=== PATIENT | female | born 1965 | race African-American/Black ===

== ENCOUNTER 2016-08-06 07:41 | Emergency (ER) | payer OTHER, MEDICARE ==
[~2016-08-06] VITALS: Ht 177.8 cm; Wt 91.6 kg
[2016-08-06 07:48] VITALS: BP 120/74
--- NOTE | 2016-08-06 08:24 | ED SYNCOPE COMPLAINT ---
History of Present Illness General Chief Complaint: Syncope and Near-Syncope Stated Complaint: BIBA SYNCOPE Source: patient, EMS Exam Limitations: no limitations Vital Signs & Intake/Output Vital Signs & Intake/Output Vital Signs Date Time Temp Pulse Resp B/P Pulse O2 O2 Flow FiO2 Ox Delivery Rate 08/06 0748 96.7 79 20 120/74 97 Room Air Allergies Coded Allergies: NO KNOWN ALLERGIES (04/06/14) Reconcile Medications No Known Home Medications Triage Note: BIBA FROM HOME PER PT AND EMS "PT WOKE UP ON THE FLOOR, I THINK I JUST GOT DIZZY AND PASSED OUT". ACCUCHECK ENROUTE: 112, PT IS AWAKE, ALERT, ORIENTED UPON ARRIVAL, STATES "I JUST FEEL WEAK". DENIES ILLNESS, NO N/V/D, OR URINARY PROBLEMS, HAS HX OF ASTHMA, FEELS "SLIGHTLY SHORT OF BREATH", BP 120/74, HEART RATE 77, O2 SATS 99% ON ROOM AIR UPON ARRIVAL. Triage Nurses Notes Reviewed? yes HPI: Patient presents for evaluation of dizziness and syncope. Patient states that she began feeling dizzy at about 11:00 last night while at home. Patient states that she was simply lying in bed at onset of symptoms. She also felt a little short of breath. She also describes panting respirations with fatigue, disorientation but no associated chest pain or palpitations. Patient continues to feel disoriented this morning and awoke on the floor. Some of her symptoms have been fact present for "a long time". Patient currently has no primary care physician. Past History Travel History Traveled to [place] past 21 day No Medical History Any Pertinent Medical History? see below for history Neurological: NONE EENT: NONE Cardiovascular: NONE Respiratory: asthma Gastrointestinal: NONE Hepatic: NONE Renal: NONE Musculoskeletal: NONE Psychiatric: depression Endocrine: NONE Blood Disorders: NONE Cancer(s): NONE [employer]ACH/Reproductive: NONE Surgical History Surgical History: hysterectomy Psychosocial History What is your primary language Malay Tobacco Use: Current Daily Use Daily Tobacco Use Amount/Type: =< 4 Cigarettes daily ETOH Use: occasional use Illicit Drug Use: denies illicit drug use Family History Hx Contributory? No Review of Systems Review of Systems Constitutional: Reports: malaise. EENTM: Reports: no symptoms. Respiratory: Reports: see HPI. Cardiovascular: Reports: no symptoms. GI: Reports: no symptoms. Genitourinary: Reports: no symptoms. Musculoskeletal: Reports: no symptoms. Skin: Reports: no symptoms. Neurological/Psychological: Reports: no symptoms. All Other Systems: Reviewed and Negative Physical Exam Physical Exam Cranial Nerves: see below Comments: Gen.: Well-nourished, well-developed, no acute respiratory distress. Head: Normocephalic, atraumatic. Eyes: Normal inspection bilaterally Ears: Normal inspection bilaterally Nose: Normal inspection Throat/mouth : Moist mucosa Neck: Supple, full range of motion, no goiter Heart: Regular rate and rhythm, no murmurs rubs or gallops Lungs: Clear to auscultation bilaterally with normal air entry Chest: Nontender Back: Normal range of motion Abdomen: Soft, nontender, nondistended, normal bowel sounds Extremities: Normal range of motion grossly, equal radial pulses, no cyanosis clubbing or edema Neurologic: Cranial nerves 2 through 12 intact, speech is clear Skin: warm and dry Psychiatric: Calm, cooperative, no apparent delusions or hallucinations Core Measures ACS in differential dx? No CVA/TIA Diagnosis: No Severe Sepsis Present: No Septic Shock Present: No Progress Differential Diagnosis: orthostatic syncope, sick sinus syndrome, TIA/CVA, vasodepressor syncope, ventricular tach/fib Plan of Care: Orders Procedure Date/time Status Telemetry/Swaging Machine Adjuster 08/06 1008 Active MISTAKE 08/06 0830 Active TSH REFLEX 08/06 0830 Complete TROPONIN LEVEL 08/06 0830 Complete COMPREHENSIVE METABOLIC PANEL 08/06 0830 Complete CBC WITHOUT DIFFERENTIAL 08/06 0830 Complete EKG 08/06 0756 Active Laboratory Tests 08/06/16 0850: Anion Gap 5, Estimated GFR > 60, BUN/Creatinine Ratio 21.4, Glucose 89, Calcium 9.5, Total Bilirubin 1.0, AST 23, ALT 35, Alkaline Phosphatase 93, Troponin I < 0.01, Total Protein 7.3, Albumin 4.1, Globulin 3.2, Albumin/Globulin Ratio 1.3, TSH &T3 &Free T4 Intrp 0.831, CBC w Diff NO MAN DIFF REQ, RBC 4.46, MCV 89.8, MCH 30.6, RDW 13.3, MPV 7.9, Gran % 71.0, Lymphocytes % 20.9, Monocytes % 5.9, Eosinophils % 1.8, Basophils % 0.4, Absolute Granulocytes 4.9, Absolute Lymphocytes 1.4, Absolute Monocytes 0.4, Absolute Eosinophils 0.1, Absolute Basophils 0, PUBS MCHC 34.1 Diagnostic Imaging: Discussed w/RAD: Radiology Read. CXR Impression: PATIENT: PETTY RAYO PRESENT AGE: 50 PATIENT ACCOUNT NO: [id number] : 63 LOCATION: [facility] ORDERING PHYSICIAN: ZBIGNIEW REED MD SERVICE DATE: 08/06/16 EXAM TYPE: RAD - XRY-CHEST XRAY, PA AND LATERAL EXAMINATION: XR CHEST CLINICAL INFORMATION: Fatigue. Possible syncope. COMPARISON: None TECHNIQUE: 2 views of the chest were obtained. FINDINGS: Lungs are well expanded and clear. Trachea is midline in position. No pulmonary edema, focal consolidation or pleural effusion. Cardiac silhouette is normal in size. Mediastinal and hilar contours are normal. Bones are unremarkable. IMPRESSION: No acute cardiopulmonary abnormality. DICTATED BY: MERY SYED MD DATE/TIME DICTATED:08/06/16952 SOLAR SALES ADVISOR:RACHEL DATE/TIME TRANSCRIBED:08/06/16952 CONFIDENTIAL, DO NOT COPY WITHOUT APPROPRIATE AUTHORIZATION. <Electronically signed in Other Vendor System> SIGNED BY: MERY SYED MD 08/06/1658 Initial ED EKG: NSR, rate (79) Comments: During my care of this patient I considered the following differential diagnoses : Cardiac syncope/dysrhythmia but the EKG and telemetry showed no dysrhythmia, there were no significant electrolyte abnormalities, and the patient denied heart palpitations. Obstructive hypertrophic cardiomyopathy but there was no history of syncope with exercise, dyspnea or chest pain on exertion, palpitations or history of cardiac disease Aortic stenosis but the patient is no history of syncope/valve disease after exercise and had no crescendo decrescendo systolic murmur or precordial thrill. Subclavian steal syndrome but the patient denied arm pain or paresthesias and physical examination showed no pulse deficit. Carotid sinus hypersensitivity but physical examination reveals no goiter or other neck mass. Orthostatic syncope but patient's blood pressure was stable during orthostatic testing. Vasovagal syncope but the patient denied known triggering event Departure Departure Disposition: HOME OR SELF CARE Condition: Stable Clinical Impression Primary Impression: Dizziness Referrals: PATIENT HAS NO PRIMARY CARE DR (PCP/Family) Additional Instructions: Follow-up with the [facility] as soon as possible for further evaluation of your symptoms. Since he underlying cause of your symptoms is unclear at this point please return immediately if any concerns or sudden worsening. Please note that there might be incidental findings in your evaluation that are unrelated to the current emergency department visit. Please notify your primary care doctor about this emergency department visit in order to obtain and review all of the testing performed so that these incidental findings can be monitored as needed. If you had an x-ray performed, please understand that some fractures may not be seen on the initial set of x-rays. If your symptoms persist you might need a repeat set of x-rays to check for such a fracture. If you had a laceration evaluated, please understand that foreign bodies such as glass or wood may not be visible to the naked eye or on plain x-rays. If the wound becomes red, swollen, increasingly more painful or if there is any drainage from the wound, please have it reevaluated by a physician for the possibility of a retained foreign body. Thank you for choosing the [facility] Emergency Department for your care. It was a pleasure to serve you today. Zbigniew Rede M.D. [facility] Departure Forms: Customer Survey General Discharge Information Prescriptions: Current Visit Scripts No Known Home Medications
[2016-08-06 09:00] LABS: ABSOLUTE BASOPHIL COUNT 0 /CUMM (0.0-0.2); ABSOLUTE EOSINOPHIL COUNT 0.1 /CUMM (0.0-0.7); ABSOLUTE GRANULOCYTE CT 4.9 /CUMM (1.4-6.5); ABSOLUTE LYMPH COUNT 1.4 /CUMM (1.2-3.4); ABSOLUTE MONOCYTE COUNT 0.4 /CUMM (0.10-0.60); BASOPHIL % 0.4 % (0.0-2.0); EOSINOPHIL % 1.8 % (0-5); HEMATOCRIT 40.1 % (37-47); MEAN CORPUSCULAR HGB 30.6 PG (27.0-31.0); MEAN CORPUSCULAR HGB CONC 34.1 G/DL (33.0-37.0); MEAN CORPUSCULAR VOLUME 89.8 FL (81.0-99.0); MEAN PLATELET VOLUME 7.9 FL (7.4-10.4); PLATELET COUNT 232 /CUMM (130-400); RBC DISTRIBUTION WIDTH 13.3 % (11.5-14.5); RED BLOOD CELL CT 4.46 /CUMM (4.20-5.40); WHITE BLOOD CELL COUNT 6.9 /CUMM (4.8-10.8)
--- NOTE | 2016-08-06 09:58 | RADIOLOGY REPORT ---
EXAMINATION: XR CHEST CLINICAL INFORMATION: Fatigue. Possible syncope. COMPARISON: None TECHNIQUE: 2 views of the chest were obtained. FINDINGS: Lungs are well expanded and clear. Trachea is midline in position. No pulmonary edema, focal consolidation or pleural effusion. Cardiac silhouette is normal in size. Mediastinal and hilar contours are normal. Bones are unremarkable. IMPRESSION: No acute cardiopulmonary abnormality.
== END 2016-08-06 10:39 ==
LOC: ERH 07:41
PROVIDERS: Emergency Medicine
DX: R42 Dizziness and giddiness (principal); R06.02 Shortness of breath; J45.909 Unspecified asthma, uncomplicated; Z72.0 Tobacco use; R53.81 Other malaise
CPT/HCPCS: 93005; 93010

== ENCOUNTER 2016-11-13 05:33 | Emergency (ER) | payer OTHER, MEDICARE ==
[2016-11-13 05:39] VITALS: BP 153/83
--- NOTE | 2016-11-13 05:46 | ED UPPER/LOWER EXTREMITY COMPL ---
History of Present Illness General Chief Complaint: Lower Extremity Problems Stated Complaint: "BIBA KNEE PAIN" Source: patient, old records, EMS Exam Limitations: no limitations Vital Signs & Intake/Output Vital Signs & Intake/Output Vital Signs Date Time Temp Pulse Resp B/P B/P Pulse O2 O2 Flow FiO2 Mean Ox Delivery Rate 11/13 0539 85 22 153/83 97 Allergies Coded Allergies: NO KNOWN ALLERGIES (04/06/14) Reconcile Medications No Known Home Medications Triage Note: PER PT CO RT KNEE PAIN UNKNOWN INJURY, UNKNOWN LENGTH OF TIME, PT ARRIVES VIA EMS PT ABLE TO GET OFF EMS STRETCHER AND AMBULATE TO ROOM STRETCHER. PT VAGUE CO DIFFICULT TO ELICIT INFORMATION FROM Triage Nurses Notes Reviewed? yes HPI: Patient presents to the emergency room by ambulance with complaints of left knee pain which she has had for the past one month or more. Patient is unsure exactly how long that is pending but remembers it being there for at least a month. Patient states the pain is constant but sometimes gets worse when she walks around and she sometimes hears a click in her knee. The pain is throbbing in nature. The pain is moderate on the scale. Patient is ambulatory in the emergency department. There is no radiation of the pain. When asked what brought her into the emergency department this morning the patient states that she keeps missing appointments and she is nervous that there cannot discharge her. When asked what appointment she is missing the patient states she cannot remember. Patient is alert and oriented 3. Past History Travel History Traveled to [place] past 21 day No Medical History Any Pertinent Medical History? see below for history Neurological: NONE EENT: NONE Cardiovascular: NONE Respiratory: asthma Gastrointestinal: NONE Hepatic: NONE Renal: NONE Musculoskeletal: NONE Psychiatric: bipolar disease, depression Endocrine: NONE Blood Disorders: NONE Cancer(s): NONE SUPERVISOR DUMPING/Reproductive: NONE Surgical History Surgical History: hysterectomy Psychosocial History What is your primary language Romanian Tobacco Use: Quit >30 days ago ETOH Use: occasional use Illicit Drug Use: denies illicit drug use Family History Hx Contributory? No Review of Systems Review of Systems Constitutional: Reports: no symptoms. Respiratory: Reports: no symptoms. Cardiovascular: Reports: no symptoms. Musculoskeletal: Reports: see HPI, joint pain. Neurological/Psychological: Reports: no symptoms. Immunological: Reports: no symptoms. Physical Exam Physical Exam General Appearance: well developed/nourished, alert, awake, mild distress Head: atraumatic, normal appearance Eyes: Bilateral: PERRL, EOMI. Neck: normal inspection, supple, full range of motion Cardiovascular/Respiratory: normal breath sounds, normal peripheral pulses, regular rate/rhythm, no respiratory distress Knee Left: normal range of motion, normal inspection Knee Ligaments Left: STABLE Neurologic/Tendon: normal sensation, normal motor functions, normal tendon functions Skin: intact, normal color, warm/dry Lymphatic: no anterior cervical meera Progress Differential Diagnosis: compartment syndrome, contusion, fracture, sprain Plan of Care: Orders Procedure Date/time Status Durable Medical Equipment 11/13 614 Active Diagnostic Imaging: Viewed by Me: Radiology Read. Discussed w/RAD: Radiology Read. Radiology Impression: PATIENT: PETTY RAYO PRESENT AGE: 51 PATIENT ACCOUNT NO: [id number] : 63 LOCATION: [facility] ORDERING PHYSICIAN: PARTH ROMO MD SERVICE DATE: 11/13/16 EXAM TYPE: RAD - XRY-KNEE COMPLETE LEFT EXAMINATION: XR KNEE, LEFT CLINICAL INFORMATION: Left knee pain x1 month COMPARISON: None TECHNIQUE: AP, lateral, and both oblique views of the left knee. FINDINGS: Bones are osteopenic. Tricompartmental degenerative arthritis is characterized by joint space narrowing and moderate size marginal osteophytes. Small joint effusion. No fractures. Mild generalized soft tissue swelling. IMPRESSION: 1. 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 2. Small joint effusion. 3. No fractures. DICTATED BY: CLINT GIL MD DATE/TIME DICTATED:11/13/16624 SET UP / OPERATOR:RACHEL DATE/TIME TRANSCRIBED:11/13/16624 CONFIDENTIAL, DO NOT COPY WITHOUT APPROPRIATE AUTHORIZATION. <Electronically signed in Other Vendor System> SIGNED BY: CLINT GIL MD 11/13/16628 Departure Departure Disposition: HOME OR SELF CARE Condition: Stable Clinical Impression Primary Impression: Left knee pain Referrals: TONYA BEAN,FELICIA PATIENT HAS NO PRIMARY CARE DR (PCP/Family) Additional Instructions: WEAR IMMOBILIZER FOR COMFORT FOLLOW UP WITH ORTHOPEDICS RETURN FOR ANY CONCERNS Departure Forms: Customer Survey General Discharge Information Prescriptions: Current Visit Scripts No Known Home Medications Procedures Splinting Location: LEFT KNEE Manual Alignment Performed: No Pre-Made Type: knee imobilizer Splint: KNEE Splint Applied By: splint applied by other Pre-Proc Neuro Vasc Exam: normal Post-Proc Neuro Vasc Exam: normal
--- NOTE | 2016-11-13 06:29 | RADIOLOGY REPORT ---
EXAMINATION: XR KNEE, LEFT CLINICAL INFORMATION: Left knee pain x1 month COMPARISON: None TECHNIQUE: AP, lateral, and both oblique views of the left knee. FINDINGS: Bones are osteopenic. Tricompartmental degenerative arthritis is characterized by joint space narrowing and moderate size marginal osteophytes. Small joint effusion. No fractures. Mild generalized soft tissue swelling. IMPRESSION: 1. 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 2. Small joint effusion. 3. No fractures.
== END 2016-11-13 06:54 ==
LOC: ERH 05:33
DX: M25.562 Pain in left knee (principal)
CPT/HCPCS: 73562-LT